=== PATIENT | male | born 2000 | race African-American/Black ===

== ENCOUNTER 2022-09-20 22:22 | Emergency (ER) | payer OTHER, SELFPAY ==
[2022-09-20 22:33] VITALS: BP 123/64; PULSE 75; RESP 12; TEMP 36.6; O2SAT 95; BMI 22.5
--- NOTE | 2022-09-20 23:09 | CTR_ITS ---
PROCEDURE INFORMATION: Exam: CT Head Without Contrast Exam date and time: 09/20/2022 11:35 PM Age: 21 years old Clinical indication: Injury or trauma; Fall; Blunt trauma (contusions or hematomas); Patient HX: Patient playing basketball and sustained a blow to the face. Small hematoma to RT eyebrow with abrasion to nasion. TECHNIQUE: Imaging protocol: Computed tomography of the head without contrast. Radiation optimization: All CT scans at this facility use at least one of these dose optimization techniques: automated exposure control; mA and/or kV adjustment per patient size (includes targeted exams where dose is matched to clinical indication); or iterative reconstruction. COMPARISON: No relevant prior studies available. RADIATION DOSE METRICS: Total DLP (mGy-cm): 1073.18 FINDINGS: Brain: No focal hemorrhage or midline shift is identified. Cerebral ventricles: Mild ventriculomegaly without evidence of acute hydrocephalus. Paranasal sinuses: The partially assessed sinuses are grossly clear. Mastoid air cells: Visualized mastoid air cells are well aerated. Bones/joints: No displaced skull fracture is noted. Soft tissues: Unremarkable. CT/CT head wo con* [id number] IMPRESSION: 1. No acute intracranial abnormality. 2. There is mild ventriculomegaly of uncertain significance. No evidence of acute hydrocephalus. Follow with neurology. 3. Face CT pending.
--- NOTE | 2022-09-20 23:09 | CTR_ITS ---
PROCEDURE INFORMATION: Exam: CT Maxillofacial Without Contrast Exam date and time: 09/20/2022 11:38 PM Age: 21 years old Clinical indication: Injury or trauma; Fall; Blunt trauma (contusions or hematomas); Nose; Patient HX: Patient playing basketball and sustained a blow to the face. Small hematoma to RT eyebrow with abrasion to nasion. TECHNIQUE: Imaging protocol: Computed tomography of the face without contrast. Radiation optimization: All CT scans at this facility use at least one of these dose optimization techniques: automated exposure control; mA and/or kV adjustment per patient size (includes targeted exams where dose is matched to clinical indication); or iterative reconstruction. COMPARISON: CT head wo con* [id number] 20/09/2022 23:35 RADIATION DOSE METRICS: Total DLP (mGy-cm): 606.78 FINDINGS: Orbital cavities: Orbits and globes are unremarkable. Bones/joints: Minimally displaced left nasal bone fracture likely. No other fracture is visualized. Paranasal sinuses: Minimal right ethmoid air cell opacity. Soft tissues: Right forehead swelling. CT/CT facial bones wo con* [id number] IMPRESSION: 1. Subtle left nasal bone fracture. 2. Small right forehead hematoma.
--- NOTE | 2022-09-20 23:10 | ED_ITS ---
HPI - Head Injury General: Chief complaint: Head Injury Stated complaint: nose/ head injury Time Seen by Provider: 09/20/22 22:59 Source: patient Mode of arrival: ambulatory Limitations: no limitations History of Present Illness: 21-year-old male states he was hit in the face tonight in a basketball game he states it happened a couple hours ago. States he had a headache along with nasal pain along with swelling over his nose since then. He rates his headache and nose pain a 3 out of 10 he denies any loss consciousness denies any nausea or vomiting. Associated symptoms: Deny nausea, neck pain or vomiting Review of Systems Const: Denies: fever(s), chills, body aches or change in appetite Eyes: Denies: blurry vision or eye discomfort ENMT: Denies: throat pain or dental pain Card: Denies: chest pain Resp: Denies: dyspnea GI: Denies: abdominal pain, nausea, vomiting or diarrhea : Denies: dysuria Musc: Denies: neck pain or back pain Skin/Breast: Denies: rash Neuro: Reports: headache(s) Psych: Denies: depression Colton/Lymph: Denies: easy bruising All/Imm: Denies: urticaria PFSH ED PFSH: Medical History (Updated 09/20/22 @ 23:59 by Chriss Payton MD) No pertinent past medical history Social History (Updated 09/20/22 @ 23:11 by Chriss Payton MD) Substance/Drug Use: never Physical Exam Const: COMMON NORMALS: no acute distress, patient oriented x3 and healthy appearing HENMT: COMMON NORMALS: normocephalic; head/scalp not atraumatic (hematoma to right forehead) HEAD & SCALP: normocephalic; not atraumatic (hematoma to right forehead) OTHER: tenderness over nose Eye: COMMON NORMALS: Equal, round and reactive pupils present and EOMs intact bilaterally PUPIL: Yes Equal, round and reactive pupils present Neck/C-Spine: COMMON NORMALS: full ROM and supple Chest: COMMONS NORMALS: normal inspection of the chest and normal palpation of entire chest wall Resp: COMMON NORMALS: normal respiratory effort, No retractions, No use of accessory muscles and clear to auscultation bilaterally AUSCULTATION: clear to auscultation bilaterally Cardio: COMMON NORMALS: regular rate, regular rhythm and No murmurs present (Cardio) RATE: regular rate RHYTHM: regular rhythm GI: COMMON NORMALS: Normal to inspection, nondistended, normoactive bowel sounds present, Soft to palpation, non-tender and no masses PALPATION: Yes Soft to palpation Extremity: COMMON NORMALS: normal to inspection and full ROM Neuro: COMMON NORMALS: patient oriented x3, moves all extremities and no focal motor deficits Psych: COMMON NORMALS: mental status grossly normal, Normal thought process present and cooperative THOUGHT PROCESS: Normal thought process present Skin: COMMON NORMALS: no rashes or lesions noted and no wounds GENERAL SKIN EXAM: no rashes or lesions noted Course Vital Signs: Vital signs: Vital Signs Temperature 97.8 F 09/20/22 22:33 Pulse Rate 75 09/20/22 22:33 Respiratory Rate 12 09/20/22 22:33 Blood Pressure 123/64 09/20/22 22:33 Pulse Oximetry 95 09/20/22 22:33 Oxygen Delivery Me thod 09/20/22 22:33 MDM - Head Injury Medcial Decision Making Patient presents here with a closed head injury along with a nasal fracture his fracture is subtle we will get him follow-up with ENT he is stable for discharge at this time. Lab Data Radiology Impressions Face CT 09/20/22 23:09 IMPRESSION: 1. Subtle left nasal bone fracture. 2. Small right forehead hematoma. Head CT 09/20/22 23:09 IMPRESSION: 1. No acute intracranial abnormality. 2. There is mild ventriculomegaly of uncertain significance. No evidence of acute hydrocephalus. Follow with neurology. 3. Face CT pending. 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
[2022-09-21 00:16] VITALS: BP 134/69; PULSE 67; RESP 18; O2SAT 96
--- NOTE | 2022-09-21 10:01 | DCPLANNER ---
Addendum entered by Monet Kowalski 10/06/22 13:06: Patient had a follow up appointment scheduled with ENT - patient did attend appointment. Addendum entered by Monet Kowalski 09/22/22 10:41: Patient has a follow up appointment scheduled for Sunday, October 02, [address]22 at 11:[address] Bernabe at [facility]. Clinic will call patient with appointment information. Original Note: manager functional had message to schedule a follow up appointment for patient with ENT. manager functional sent patients information to the front office staff at [facility]. Patients information will be printed and reviewed. Clinic will call patient with appointment information.
== END 2022-09-21 00:17 | disposition home or self-care (01) ==
PROVIDERS: Emergency Provider Emergency Medicine
DX: S02.2XXA Fracture of nasal bones, initial encounter for closed fracture (principal); W50.0XXA Accidental hit or strike by another person, initial encounter; Y93.67 Activity, basketball
CPT/HCPCS: 70450; 70486; 99284